=== PATIENT | female | born 2000 | race Caucasian/White ===

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

== ENCOUNTER 2018-02-17 19:06 | Emergency (ER) | payer BC, MEDICAID ==
[~2018-02-17] VITALS: Ht 165.1 cm; Wt 77.3 kg
[2018-02-17 19:25] LABS: BASOPHILS # (AUTO) 0.06 x10^3/uL (0-0.3); BASOPHILS % (AUTO) 1 % (0-1); EOSINOPHILS % (AUTO) 1 % (1-7); LYMPHOCYTES # (AUTO) 2.41 x10^3/uL (1-6.1); LYMPHOCYTES % (AUTO) 22 % (22-44); MD NO; MEAN CORPUSCULAR HGB CONC 33.8 g/dL (32.4-35.8); MEAN CORPUSCULAR VOLUME 91.6 fL (80-100); MEAN PLATELET VOLUME 8.6 fL (7.4-10.4); MONOCYTES # (AUTO) 0.86 x10^3/uL (0-1.4); MONOCYTES % (AUTO) 8 % (2-9); NEUTROPHILS # (AUTO) 7.35 x10^3/uL (1.8-8.0); NEUTROPHILS % (AUTO) 68 % (42-75); PLATELET COUNT 277 x10^3/uL (130-400); RED BLOOD COUNT 4.81 x10^6/uL (3.82-5.3); RED CELL DISTRIBUTION WIDTH 12.9 % (9.6-15.2)
[2018-02-17 19:36] LABS: ALBUMIN 4.1 g/dL (3.4-5.0); ANION GAP 4 mmol/L (5-15); CALCIUM 8.8 mg/dL (8.5-10.1); CHLORIDE 107 mmol/L (98-107)
[2018-02-17 20:54] LABS: CULTURE INDICATED? YES; MICROSCOPIC INDICATED
[2018-02-17 20:55] LABS: HCG UR SG 1.015 (1.003-1.030)
[2018-02-17] MEDS ORDERED: KETOROLAC 30 MG/1 ML IM ONE (21:30)
[2018-02-17] MEDS ORDERED: ONDANSETRON ODT 4 MG PO ONE (21:30)
[2018-02-17] MEDS ORDERED: HYDROcodone/APAP 5/325 TABLET PO ONE (21:30)
[2018-02-17] MEDS ORDERED: HYDROcodone/APAP 5/325 TABLET ONE (22:03)
[2018-02-17] MEDS ORDERED: KETOROLAC 30 MG/1 ML ONE (22:03)
[2018-02-17] MEDS ORDERED: ONDANSETRON ODT 4 MG ONE (22:03)
[2018-02-17 22:35] VITALS: BP 121/85
== END 2018-02-17 22:43 | disposition home or self-care (01) ==
LOC: ED 20:02
DX: R10.9 Unspecified abdominal pain (principal); R11.0 Nausea
CPT/HCPCS: 36415; 74176; 76770; 80048; 81001; 81025; 82040; 85025; 87086; 96372; 99284; J1885; Q0162

== ENCOUNTER 2018-07-07 20:21 | Emergency (ER) | payer BC, MEDICAID ==
[~2018-07-07] VITALS: Ht 165.1 cm; Wt 78.0 kg
[2018-07-07 20:23] VITALS: BP 107/68
[2018-07-07 21:46] LABS: HCG UR SG 1.031 (1.003-1.030)
[2018-07-07 21:50] LABS: MICROSCOPIC INDICATED
[2018-07-07 21:54] LABS: CULTURE INDICATED? YES
== END 2018-07-07 22:25 | disposition home or self-care (01) ==
LOC: ED 22:05
DX: L03.317 Cellulitis of buttock (principal)
CPT/HCPCS: 81001; 81025; 87086; 99283

== ENCOUNTER 2018-08-02 18:24 | Emergency (ER) | payer MEDICAID ==
[~2018-08-02] VITALS: Ht 170.2 cm; Wt 80.9 kg
[2018-08-02 19:14] LABS: BASOPHILS # (AUTO) 0.04 x10^3/uL (0-0.3); BASOPHILS % (AUTO) 0 % (0-1); EOSINOPHILS # (AUTO) 0.06 x10^3/uL (0-0.8); EOSINOPHILS % (AUTO) 1 % (1-7); LYMPHOCYTES # (AUTO) 2.41 x10^3/uL (1-6.1); LYMPHOCYTES % (AUTO) 30 % (22-44); MD NO; MEAN CORPUSCULAR HEMOGLOBIN 31.1 pg (27.0-34.8); MEAN CORPUSCULAR HGB CONC 33.8 g/dL (32.4-35.8); MEAN CORPUSCULAR VOLUME 92.2 fL (80-100); MEAN PLATELET VOLUME 8.5 fL (7.4-10.4); MONOCYTES # (AUTO) 0.61 x10^3/uL (0-1.4); MONOCYTES % (AUTO) 8 % (2-9); NEUTROPHILS # (AUTO) 5.03 x10^3/uL (1.8-8.0); NEUTROPHILS % (AUTO) 62 % (42-75); PLATELET COUNT 272 x10^3/uL (130-400); RED BLOOD COUNT 4.61 x10^6/uL (3.82-5.3); RED CELL DISTRIBUTION WIDTH 12.6 % (9.6-15.2)
--- NOTE | 2018-08-02 19:22 | NUR ---
URINE COLLECTED AND WALKED TO LAB
[2018-08-02 19:24] LABS: ALBUMIN 3.8 g/dL (3.4-5.0); ANION GAP 4 mmol/L (5-15); CALCIUM 8.8 mg/dL (8.5-10.1); CHLORIDE 109 mmol/L (98-107); CREATININE 0.86 mg/dL (0.55-1.02)
[2018-08-02 19:29] LABS: HCG UR SG 1.026 (1.003-1.030)
[2018-08-02] MEDS ORDERED: PHENAZOPYRIDINE 200 MG TABLET PO ONE (19:30)
[2018-08-02 19:31] LABS: MICROSCOPIC INDICATED
[2018-08-02 19:40] LABS: CULTURE INDICATED? YES
[2018-08-02] MEDS ORDERED: PHENAZOPYRIDINE 200 MG TABLET ONE (19:40)
[2018-08-02] MEDS ORDERED: SULFAMETH./TRIMETHOPRIM DS 800MG/160MG TABLET ONE (19:50)
[2018-08-02 19:55] VITALS: BP 111/75
[2018-08-02] MEDS ORDERED: SULFAMETH./TRIMETHOPRIM DS 800MG/160MG TABLET PO ONE (20:00)
== END 2018-08-02 19:57 | disposition home or self-care (01) ==
LOC: ED 19:25
DX: N39.0 Urinary tract infection, site not specified (principal)
CPT/HCPCS: 36415; 80048; 81001; 81025; 82040; 85025; 87077; 87086; 87186; 99283

== ENCOUNTER 2019-07-04 16:49 | Emergency (ER) | payer MEDICAID ==
[~2019-07-04] VITALS: Ht 165.1 cm; Wt 87.0 kg
[2019-07-04 16:56] VITALS: BP 124/74
--- NOTE | 2019-07-04 17:19 | NUR ---
BREAST AUGMENTATION PROCEDURE WAS DONE ON 06/04/19. PT STATES SHE COMPLETED A COURSE OF ABX (CIPRO) FOLLOWING PROCEDURE. R BREAST INCISION HEALING WELL BUT L BREAST INCISION STILL OPEN WITH SOME DRAINAGE. SIGNIFICANT OTHER AT BS.
--- NOTE | 2019-07-04 18:02 | NUR ---
D/C INSTRUCTIONS, MEDS & F/U APPT RV'WD WITH PT, SHE VERBALIZES UNDERSTANDING. RX GIVEN X2. PT AMBULATED OUT OF ED WITH SIGNIFICANT OTHER WITHOUT DIFFICULTY.
== END 2019-07-04 18:04 | disposition home or self-care (01) ==
LOC: ED 17:58
DX: N61.0 Mastitis without abscess (principal); T81.31XA Disruption of external operation (surgical) wound, not elsewhere classified, initial encounter
CPT/HCPCS: 99283

== ENCOUNTER 2019-09-08 18:27 | Emergency (ER) | payer BC, MEDICAID ==
[~2019-09-08] VITALS: Ht 167.6 cm; Wt 84.0 kg
--- NOTE | 2019-09-08 18:45 | NUR ---
PT AMBULATORY TO ROOM 16 W/ C/O LLQ ABD PAIN STARTED YESTERDAY WORSENING NOW. PT DENIES N/V/D. STATES LBM TODAY NO ISSUES. URINATING W/O ISSUES. LMP 08/27/2019. PT DENIES ANY HX. PT RESTING ON [facility]. ANSHUL. VSS.
--- NOTE | 2019-09-08 18:58 | NUR ---
REPORT GIVEN TO BLADIMIR URBANO RN'S.
--- NOTE | 2019-09-08 18:59 | NUR ---
RECEIVED REPORT FROM MEG DUENAS. PT LAYING IN BED, VSS, RESPIRATIONS EVEN AND UNLABORED. PT STATES PAIN "HURTS MORE WHEN I MOVE." PT HAS PHONE IN HAND, CALL LIGHT WITHIN REACH. BOYFRIEND AT BEDSIDE.
[2019-09-08 19:00] LABS: BASOPHILS # (AUTO) 0.05 x10^3/uL (0-0.1); BASOPHILS % (AUTO) 1 % (0-1); EOSINOPHILS # (AUTO) 0.14 x10^3/uL (0-0.4); EOSINOPHILS % (AUTO) 2 % (1-7); LYMPHOCYTES # (AUTO) 3.16 x10^3/uL (1-3.4); LYMPHOCYTES % (AUTO) 36 % (22-44); MD NO; MEAN CORPUSCULAR HEMOGLOBIN 30.4 pg (27.0-34.8); MEAN CORPUSCULAR HGB CONC 33.8 g/dL (32.4-35.8); MEAN CORPUSCULAR VOLUME 90.1 fL (80-100); MEAN PLATELET VOLUME 8.8 fL (7.4-10.4); MONOCYTES # (AUTO) 0.55 x10^3/uL (0.2-0.8); MONOCYTES % (AUTO) 6 % (2-9); NEUTROPHILS # (AUTO) 5.01 x10^3/uL (1.8-6.8); NEUTROPHILS % (AUTO) 56 % (42-75); PLATELET COUNT 277 x10^3/uL (130-400); RED BLOOD COUNT 4.72 x10^6/uL (3.82-5.3); RED CELL DISTRIBUTION WIDTH 12.4 % (9.6-15.2)
[2019-09-08 19:07] LABS: MICROSCOPIC INDICATED
[2019-09-08 19:11] LABS: ALANINE AMINOTRANSFERASE 50 U/L (12-78); ALBUMIN 3.7 g/dL (3.4-5.0); ANION GAP 5 mmol/L (5-15); CALCIUM 8.8 mg/dL (8.5-10.1); CHLORIDE 106 mmol/L (98-107); CREATININE 0.85 mg/dL (0.55-1.02)
[2019-09-08 19:15] LABS: ALKALINE PHOSPHATASE 70 U/L (45-117); BILIRUBIN,TOTAL 0.4 mg/dL (0.2-1.0)
--- NOTE | 2019-09-08 19:22 | NUR ---
ERP MADE AWARE OF PT'S PAIN. PT TO IMAGING AT THIS TIME.
--- NOTE | 2019-09-08 19:32 | NUR ---
PT BACK FROM IMAGING, LAUGHING WITH HER BOYFRIEND WHO REMAINS AT BEDSIDE, NO INQUIRY ABOUT PAIN MEDS.
[2019-09-08] MEDS ORDERED: ONDANSETRON 2MG/ML, 2ML ONE (19:45)
[2019-09-08] MEDS ORDERED: MORPHINE SULFATE 4 MG/ML, 1ML ONE (19:46)
--- NOTE | 2019-09-08 19:52 | NUR ---
IV START TO MEDICATE PT TO MAY. PT TOLERATED WELL, LAYING IN BED WATCHING. PT STATES SHE CAN FEEL THE PAIN MEDICATION MOVE THROUGH HER LEGS, EDUCATED PT TO WAIT 15 MINUTES FOR MEDICATION TO TAKE EFFECT ON PAIN. WILL CONTINUE TO MONITOR. PT REMAINS ON BP AND 02 MONITOR, BEDRAILS UP, PHONE AND CALL LIGHT IN REACH, BOYFRIEND AT BEDSIDE. ALL NEEDS MET AT THIS TIME.
--- NOTE | 2019-09-08 19:56 | NUR ---
ERP TO BEDSIDE TO UPDATE PT ON RESULTS AND POC. PT DENIES QUESTIONS. WILL WATCH FOR ORDERS.
[2019-09-08] MEDS ORDERED: ONDANSETRON 2MG/ML, 2ML IVPush ONE (20:00)
[2019-09-08] MEDS ORDERED: MORPHINE SULFATE 4 MG/ML, 1ML IVPush PRN (20:00)
[2019-09-08] MEDS ORDERED: SODIUM CHLORIDE FLUSH 10ML SYR IVF ONE (20:00)
[2019-09-08 20:28] VITALS: BP 105/72
--- NOTE | 2019-09-08 20:29 | NUR ---
PT DRESSED SELF FOR DISCHARGE, ALL QUESTIONS ANSWERED.
== END 2019-09-08 20:32 | disposition home or self-care (01) ==
LOC: ED 20:25
DX: N30.00 Acute cystitis without hematuria (principal); R10.32 Left lower quadrant pain
CPT/HCPCS: 36415; 76830; 80053; 81001; 84703; 85025; 87086; 96374; 96375; 99284; J2270; J2405

== ENCOUNTER 2020-04-02 16:29 | Emergency (ER) | payer BC, MEDICAID ==
[~2020-04-02] VITALS: Ht 167.6 cm; Wt 89.0 kg
--- NOTE | 2020-04-02 17:15 | NUR ---
charge operator note: pt to room 24 via wheelchair with c collar in place.
[2020-04-02] MEDS ORDERED: ACETAMINOPHEN 500 MG TABLET PO ONE (17:30)
[2020-04-02] MEDS ORDERED: ONDANSETRON ODT 4 MG PO ONE (17:30)
[2020-04-02] MEDS ORDERED: ONDANSETRON ODT 4 MG ONE (17:32)
[2020-04-02] MEDS ORDERED: ACETAMINOPHEN 500 MG TABLET ONE (17:32)
--- NOTE | 2020-04-02 17:34 | NUR ---
PT TO CT.
[2020-04-02] MEDS ORDERED: KETOROLAC 30 MG/1 ML IVPush ONE (18:00)
[2020-04-02] MEDS ORDERED: KETOROLAC 30 MG/1 ML ONE (18:37)
--- NOTE | 2020-04-02 19:00 | NUR ---
REPORT RECEIVED FROM CRISTAL WEAVER
[2020-04-02 20:01] VITALS: BP 120/74
== END 2020-04-02 20:03 | disposition home or self-care (01) ==
LOC: ED 17:29
DX: S06.0X9A Concussion with loss of consciousness of unspecified duration, initial encounter (principal); M54.2 Cervicalgia; R53.1 Weakness; X58.XXXA Exposure to other specified factors, initial encounter; Y93.89 Activity, other specified; Y92.89 Other specified places as the place of occurrence of the external cause; Y99.8 Other external cause status
CPT/HCPCS: 70450; 72125; 96374; 99285; J1885; Q0162

== ENCOUNTER 2020-06-17 23:26 | Emergency (ER) | payer BC, MEDICAID ==
[~2020-06-17] VITALS: Ht 165.1 cm; Wt 88.0 kg
--- NOTE | 2020-06-17 23:59 | NUR ---
Pt reports she had [place] butt lift and tummy tuck procedures done in [place] on 06/10/20. Came in today because she has been having increased pain in right lower leg and is concerned about a blood clot. Pt wearing compression socks. Belly button site from tummy tuck has some redness at the site but little pain or inflammation. Drainage tube in place draining small amount of blood tinged fluid.
--- NOTE | 2020-06-18 00:03 | NUR ---
Pt to US
--- NOTE | 2020-06-18 00:10 | NUR ---
Report received from MEG Sadelr. This RN to assume care. Patient in US at this time.
[2020-06-18] MEDS ORDERED: OMNIPAQUE 350 MG/ML, 100ML BOTTLE ONE ×2 (00:30→14:39)
[2020-06-18 01:02] LABS: BASOPHILS % (AUTO) 1 % (0-1); EOSINOPHILS % (AUTO) 0 % (1-7); LYMPHOCYTES % (AUTO) 9 % (22-44); MEAN CORPUSCULAR HEMOGLOBIN 31.1 pg (27.0-34.8); MEAN CORPUSCULAR HGB CONC 33.4 g/dL (32.4-35.8); MEAN PLATELET VOLUME 7.3 fL (7.4-10.4); MONOCYTES % (AUTO) 4 % (2-9); NEUTROPHILS % (AUTO) 86 % (42-75); PLATELET COUNT 439 x10^3/uL (130-400); RED BLOOD COUNT 3.33 x10^6/uL (3.82-5.3); RED CELL DISTRIBUTION WIDTH 13.1 % (9.6-15.2)
[2020-06-18 01:06] LABS: MD NO
[2020-06-18 01:12] LABS: ALANINE AMINOTRANSFERASE 136 U/L (12-78); ANION GAP 6 mmol/L (5-15); CALCIUM 8.4 mg/dL (8.5-10.1); CHLORIDE 108 mmol/L (98-107); CREATININE 0.67 mg/dL (0.55-1.02)
[2020-06-18 01:16] LABS: ALKALINE PHOSPHATASE 96 U/L (45-117); BILIRUBIN,TOTAL 1.3 mg/dL (0.2-1.0); TOTAL PROTEIN 6.8 g/dL (6.4-8.2); TROPONIN I < 0.015 ng/mL (0.000-0.045)
[2020-06-18 03:16] VITALS: BP 113/77
--- NOTE | 2020-06-18 03:30 | NUR ---
Discharge instructions given. All questions and concerns addressed. Patient ambulatory with a steady gait. Belongings with patient.
== END 2020-06-18 03:43 | disposition home or self-care (01) ==
LOC: ED 06-18 00:13
DX: M79.661 Pain in right lower leg (principal); D72.829 Elevated white blood cell count, unspecified; M79.89 Other specified soft tissue disorders; R91.1 Solitary pulmonary nodule; R00.0 Tachycardia, unspecified; R06.02 Shortness of breath
CPT/HCPCS: 36415; 71275; 80053; 84484; 84703; 85025; 93971; 99285; Q9967